=== PATIENT | male | born 1935 | race Caucasian/White ===

== ENCOUNTER 2023-08-11 14:18 | Outpatient (AMB) | payer MEDICARE, SELFPAY ==
[2023-08-11 14:27] VITALS: BP 110/60; PULSE 70; O2SAT 94; BMI 28.5
--- NOTE | 2023-08-11 14:27 | HO.NEPHOV_ITS ---
Vital Signs 08/11/23 14:27 Height 6 ft 1 in Weight 216 lb 4 oz BMI 28.5 BP 110/60 Blood Pressure Location Rt brachial Position Sitting Pulse 70 Pulse Source Pulse Oximeter Pulse Oximetry (%) 94 Oxygen Delivery Method Room Air Intake Visit Reasons: CKD/ Confirmed Hairspring Cutter Required: No Accompanied by: Significant Other Allergies Penicillins [PENICILLINS] Allergy (Severe, Verified 08/11/23 14:30) ANAPHYLAXIS penicillin V Allergy (Unknown, Verified 08/11/23 14:30) anaphylactic HPI Comments Details: I had the pleasure of seeing Ramon in follow-up of his history of hematuria. He is currently feeling well. He does not have any pedal edema, microscopic hematuria, orthostatic symptoms, chest pain, shortness of breath, paroxysmal nocturnal dyspnea. He follows up with the urologist as well. He has not had any medication changes. His blood pressure has been at goal. He maintains good hydration. [facility] Medical History (Updated 08/11/23 @ 21:42 by Kev Blackwell MD) Scanlon's neuroma History of renal stone History of prostate cancer Hematuria Surgical History (Updated 08/11/23 @ 14:33 by Mariya Gan MA) History of intraocular lens implant H/O Achilles tendon repair S/P rotator cuff repair Social History (Updated 08/11/23 @ 14:30 by Mariya Gan MA) Alcohol intake: never Patient Tobacco Use Status: Never used Tobacco Physical Exam Vital Signs: Last Vital Signs Pulse 70 08/11/23 14:27 BP 110/60 08/11/23 14:27 Pulse Ox 94 08/11/23 14:27 Oxygen Delivery Method Room Air 08/11/23 14:27 BMI result Body Mass Index 28.5 Const General: comfortable and no acute distress Orientation/consciousness: patient oriented x3 HEENT Head: Yes normocephalic Mouth: Normal oral and palatal mucosa present Eyes EOM: EOMs intact bilaterally Neck Neck: Yes supple Resp Auscultation: clear to auscultation bilaterally Cardio Jugular venous distension: no JVD Rate: regular rate GI Palpation (GI): Soft to palpation Auscultation: normal bowel sounds General: Yes no CVA tenderness Back/Spine/Pelvis Back: no CVA tenderness Skin General skin exam: no rashes or lesions noted Neuro General: patient oriented x3 and moves all extremities Extrem General: Yes no pedal edema Results Reviewed Nephrology Results: No Data to Display Assessment & Plan Assessment & Plan (1) Hematuria: Code(s): R31.9 - Hematuria, unspecified Category: Medical Qualifiers: Hematuria type: benign essential microscopic Qualified Code(s): R31.1 - Benign essential microscopic hematuria (2) History of renal stone: Code(s): Z87.442 - Personal history of urinary calculi Category: Medical Plan Ramon has history of prostate cancer 25 years ago. He also has history of renal stones which he has not had for a long time. His last CT abdomen showed bladder wall thickening. He follows up with urologist. He has no systemic symptoms or any hematuria. His renal functions have been stable. His blood p ressure is at goal. He avoids nonsteroidal anti-inflammatories. He maintains good hydration. I had not make any medication changes today. All his questions were answered. Coding Level of Care Code Est Pt Level 4 (14220) Diagnoses Benign essential microscopic hematuria 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
== END 2023-08-11 15:14 | disposition home or self-care (01) ==
PROVIDERS: PCP Hospitalist; Visit Provider Internal Medicine Nephrology
DX: R31.1 Benign essential microscopic hematuria (principal); Z87.442 Personal history of urinary calculi
CPT/HCPCS: 99214

== ENCOUNTER → 2023-08-11 14:18 | Outpatient (BNVA) | payer MEDICARE, SELFPAY | PROVIDERS: PCP Hospitalist; Visit Provider Internal Medicine Nephrology | DX: R31.1 Benign essential microscopic hematuria (principal); Z87.442 Personal history of urinary calculi | CPT/HCPCS: 99212 ==

== ENCOUNTER 2024-10-13 10:58 | Outpatient (AMB) | payer MEDICARE, SELFPAY ==
--- OUTSIDE RECORDS SUMMARY | 2024-04-10 04:30 | XMS_ITS ---
Author Organization [facility] Address [address] [place] [address] Care Team Providers Care Form Presser Name Role Phone Jes Mccray Primary Care Provider Unavailab Kaylah Galarza Unavailable [phone] Joanie Garcia [phone] REASON FOR VISIT sooner appt Encounters Encounter Location Date Provider Diagnosis [facility] [address] [place] [address] 04/10/2024 Joanie Garcia Plan Of Treatment No Information Progress Notes * Ramon PAYANDOB:1935 (89 yo M)Acc No.[id number]:04/10/2024 Progress Notes Patient: Ramon RAY Provider: Dede Garcia DPM :1935 A ge:89 Y S ex:Male Date:04/10/2024 Address:[address] [place] [address] dl [id number] Pcp:Jes Mccray Subjective: * Chief Complaints: * 1 . Sooner appt. * Medical History: Objective: * Vitals: Assessment: Plan: * Treatment: * Images: * The named appointment provid er may or may not be the originator of this progress note, and it is not deemed complete until electronically signed by the appointment provider. Sign off status: Pending * Provider: Dede Garcia DPM Date: 0 04/10/2024 Generated for Suzanna bronson/Laura/Ferchoitting on: 0 10/13/2024 11:35 AM EDT
--- OUTSIDE RECORDS SUMMARY | 2024-09-18 03:47 | XMS_ITS ---
Author Name [facility] [facility] [place] Address [address] [place] [address] Care Team Providers Care Humanities Department Chair Name Role Phone KAM CLANCY Primary Care Provider Unavaila [facility] Insurance Providers: All historical and current Section Date Range: From patient's date of to the date document was created. This section includes the names of all active insurance providers for the patient. Insurance Provider Type of Coverage Plan Name Start of Policy Coverage End of Policy Coverage Group Number Member ID Insurance Provider's Telephone Number Policy Calles's Name Patient's Relationship to Policy Calles [employer] MEDICARE SUPPLEMEN [place] Mar 29, 2006 [facility] [id number] SCUHYLER,L O[place]IS PATIENT AARP MED [facility] MEDICARE SUPPLEMEN [place] Mar 29, 2006 [facility] [id number] SCHUYLER,L [place] PATIENT MEDICARE (WNR) MEDICARE (M) PART A Mar 29, 2002 PART A [id number] SCHUYLER,L [place] PATIENT MEDICARE (WNR) MEDICARE (M) PART B Mar 29, 2002 PART B [id number] SCHUYLER,L [place] PATIENT Selected Encounter This section includes the information on record at [place] for the Encounter. Date/Time Encounter Type Encounter Description Reason Provider Source Sep 18, 2024 07:47 AM [facility] OL DIG ASSMT&MGMT 5-10 CLINICAL PHARMACY ICD-10-CM Z04.89 Encounter for examination and observation for oth reasons OZZY BOATENG [facility] Encounter Template Text not used by [place] Assessments - Encounter Diagnoses This section includes the primary and secondary diagnoses documented for the Encounter. Date/Time Primary/Secondary Diagnosis Diagnosis Name Provider Source Sep 18, 2024 07:57 AM PRIMARY Encounter for examination and observation for oth reasons OZZY BOATENG [facility] Plan of Treatment: Future Appointments (+ 6 months) and Future Tests (+/- 45 days) The Plan of Treatment section includes future care activities for the patient [facility] [place] [facility] This section includes future appointments and future orders which are active, pending or scheduled. Future Appointments This section includes appointments that were scheduled to occur 6 months from the date of the Encounter, up to a maximum of 20 appointments. The data comes from all [place] treatment facilities. Appointment Date/Time Appointment Type Appointme nt Facility Name Nov 23, 2024 09:30 AM AMBULATORY - MEDICINE [facility] Social History: Smoking Status (Most current) and Tobacco Use (All prior to encounter date) This section includes the most current, and the historical, smoking and tobacco- related health factors from the [place] facility where the Encounter took place. Current Smoking Status This section includes the most current smoking, or tobacco-related health factor, from the [place] facility where the Encounter took place. Date/Time Current Smoking Status Comment Facil ity Nov 22, 2023 02:00 PM [facility] Tobacco Use History This section includes a history of the smoking, or tobacco-related health factors, that were collected on or before the date of the Encounter. The data comes from the [place] facility where the Encounter took place. Date/Time Smoking Status/Tobacco Use Comment F acility Nov 22, 2023 02:00 PM CO[facility] QUIT [facility] YRS [facility] Nov 23, 2022 10:00 AM [facility] [place] [facility] Nov 23, 2022 10:00 AM CO-TOBACCO QUIT 15 YRS OR MORE [facility] Dec 25, 2020 09:00 AM [facility] [place] [facility] Dec 25, 2020 09:00 AM VA-TOBACCO QUIT 15 YRS OR MORE [facility] [place] [facility] Dec 26, 2019 10:30 AM VA-TOBACCO FORMER USER [facility] [place] [facility] Dec 26, 2019 10:30 AM VA-TOBACCO QUIT 15 YRS OR MORE [facility] [place] [facility] Dec 09, 2018 09:59 AM VA-TOBACCO FORMER USER [facility] [place] [facility] Dec 09, 2018 09:59 AM VA-TOBACCO QUIT 15 YRS OR MORE [facility] Encounter Notes: All associated encounter notes This section contains the clinical notes associated to the Encounter. Date/Time Encounter Note(s) Provider Source Sep 18, 2024 07:47 AM PHARMACY MEDICATION MGT NOTE: LOCAL TITLE: PHARMACY ANTICOAGULATION NOTE STANDARD TITLE: PHARMACY MEDICATION MGT NOTE DATE OF NOTE: SEP 18, 2024@07:47 ENTRY DATE: SEP 18, 2024@07:47:39 AUTHOR: JUSTIN MONCADA EXP COSIGNER: URGENCY: STATUS: COMPLETED PHARMACY ANTICOAGULATION NOTE Has ADDENDA ANTICOAGULATION DOAC MONITORING NOTE SUBJECTIVE: Patient identified through the DOAC population Management Tool based on the following criteria: [ ] Dosing Issue [ ] Critical Drug Interaction [ ] Cancer Treatment [ ] Active NSAID [ ] Labs Overdue [ ] Prosthetic Valve Replacement [ ] Notable Lab Value [ X ] Overdue for Refill [ ] Other: Comments: Pt flagged for being overdue for refill. Rx last filled apixaban x90 days 04/12/24 OBJECTIVE: Indication for anticoagulation: [ ] Atrial fibrilation [ ] Atrial flutter [ X ] VTE (DVT or PE) [ ] Post-op DVT prophylaxis [ ] Other: Most recent lab values include the following: HGB: HGB Collection DT Specimen Test Name Result Units Ref Range 03/31/2024 11:37 BLOOD HGB 14.1 g/dL 12.8 - 17 PLT: WBC Collection DT Specimen Test Name Result Units Ref Range 03/31/2024 11:37 BLOOD WBC 9.11 K/cmm 4.50 - 11.00 Liver Function Tests Collection DT Spec AST ALT ALK FRANNY ALBUMIN T BILI T. PROT 03/31/2024 11:37 SERUM 22 17 93 3.8 0.4 6.8 HEIGHT: 72 in [182.9 cm] (11/22/2023 13:50) WEIGHT: 212 lb [96.16 kg] (11/22/2023 13:50) BMI: BMI: 28.8 CREATININE-EGFR 03/31/24 11:37 1.18 CRCL IBW: CrCl(est): 48.4 mL/min (Creat:1.18 03/31/24) CRCL ACT: No Creat CRCL ADJ: 48.4 mL/min (03/31/24) ASSESSMENT: refill overdue Action required? [ X ] Yes [ ] No Comments: last filled apixaban 04/12/24 and per 04/04/24 consult Expected Duration: 6 months. Will alert PCP and ask that apixaban be discontinued if is no longer taking or PLAN: [ ] No action required, dismiss flag [ X ] Will intervene: [ ] Patient education via phone/letter [ ] Schedule phone/aipk-yf-ilbi follow up [ ] Lab ordered [ ] Discontinue interacting medication [ ] Discontinue DOAC [ ] Change to alternative DOAC [ ] Change DOAC dose [ X ] Notify PCP [ ] Consult cardiology/hematology [ ] Other: Time spent: 5 min /pauline/ UJSTIN MONCADA CPHT Clinical Tank Car Repairer Signed: 09/18/2024 07:51 Receipt Acknowledged By: 09/18/2024 07:57 /pauline/ Neema Boateng PharmD, JULIAN Clinical Pet Counselor 09/18/2024 08:13 /pauline/ Kam Clancy DNP, [employer]-, CNL Primary Care Nurse Practitioner 09/18/2024 ADDENDUM STATUS: COMPLETED Above case reviewed as entered by [facility] Physician Neonatology. Agree with current assessment and plan of care for this patient's anticoagulation management as noted. Deferring Rx d/c to PCP. /pauline/ Neema Boateng PharmD, [facility] Clinical Pet Counselor Signed: 09/18/2024 07:57 JUSTIN MONCADA [facility]
[2024-10-13 11:17] VITALS: BP 124/60; PULSE 73; O2SAT 96; BMI 29.1
--- NOTE | 2024-10-13 11:17 | HO.NEPHOV_ITS ---
Vital Signs 10/13/24 11:17 Height 6 ft 1 in Weight 220 lb 6 oz BMI 29.1 BP 124/60 Blood Pressure Location Rt brachial Position Sitting Pulse 73 Pulse Source Pulse Oximeter Pulse Oximetry (%) 96 Oxygen Delivery Method Room Air Intake Visit Reasons: CKD/ 1 Year FU-Conf Barrel Lapper Required: No Accompanied by: Spouse Allergies Penicillins (PENICILLINS) Allergy (Severe, Verified 10/13/24 11:19) ANAPHYLAXIS penicillin V Allergy (Unknown, Verified 10/13/24 11:19) anaphylactic HPI Comments Details: I had the pleasure of seeing Ramon in follow-up of his history of hematuria. He is currently feeling well. He does not have any pedal edema, microscopic hematuria, orthostatic symptoms, chest pain, shortness of breath, paroxysmal nocturnal dyspnea. He follows up with the urologist as well. He has not had any medication changes. His blood pressure has been at goal. He maintains good hydration. [facility] Medical History (Updated 08/11/23 @ 21:42 by Kev Blackwell MD) Capo's neuroma History of renal stone History of prostate cancer Hematuria Surgical History (Updated 08/11/23 @ 14:33 by Mariya Gan MA) History of intraocular lens implant H/O Achilles tendon repair S/P rotator cuff repair Social History (Updated 08/11/23 @ 14:30 by Mariya Gan MA) Alcohol intake: never Patient Tobacco Use Status: Never used Tobacco Review of Systems Const All systems reviewed & are unremarkable except as noted in HPI and below Physical Exam Vital Signs: Last Vital Signs Pulse 73 10/13/24 11:17 BP 124/60 10/13/24 11:17 Pulse Ox 96 10/13/24 11:17 Oxygen Delivery Method Room Air 10/13/24 11:17 BMI result Body Mass Index 29.1 Const General: comfortable and no acute distress Orientation/consciousness: patient oriented x3 HEENT Head: Yes normocephalic Mouth: Normal oral and palatal mucosa present Eyes EOM: EOMs intact bilaterally Neck Neck: Yes supple Resp Auscultation: clear to auscultation bilaterally Cardio Jugular venous distension: no JVD Rate: regular rate GI Palpation (GI): Soft to palpation Auscultation: normal bowel sounds General: Yes no CVA tenderness Back/Spine/Pelvis Back: no CVA tenderness Skin General skin exam: no rashes or lesions noted Neuro General: patient oriented x3 and moves all extremities Extrem General: Yes no pedal edema Assessment & Plan Assessment & Plan (1) Hematuria: Code(s): R31.9 - Hematuria, unspecified Category: Medical Qualifiers: Hematuria type: benign essential microscopic Qualified Code(s): R31.1 - Benign essential microscopic hematuria (2) History of renal stone: Code(s): Z87.442 - Personal history of urinary calculi Category: Medical Plan Ramon has history of prostate cancer 25 years ago. He also has history of renal stones which he has not had for a long time. His last CT abdomen showed bladder wall thickening. He follows up with urologist. He has no systemic symptoms or any hematuria. His renal functions have been stable. His blood pressure is at goal. He avoids nonsteroidal anti-inflammatories. He maintains good hydration. I had not make any medication changes today. All his questions were answered. Orders: Orders Blood Urea Nitrogen 1 Year R31.1 - Benign essential microscopic hematuria, Z87.442 - Personal history of urinary calculi Electrolytes 1 Year R31.1 - Benign essential microscopic hematuria, Z87.442 - Personal history of urinary calculi Creatinine 1 Year R31.1 - Benign essential microscopic hematuria, Z87.442 - Personal history of urinary calculi Calcium 1 Year R31.1 - Benign essential microscopic hematuria, Z87.442 - Personal history of urinary calculi UA and rflx microscopic 1 Year R31.1 - Benign essential microscopic hematuria, Z87.442 - Personal history of urinary calculi Protein Creatinine Ratio, Ur 1 Year R31.1 - Benign essential microscopic hematuria, Z87.442 - Personal history of urinary calculi Coding Level of Care Code Est Pt Level 4 (47959) Diagnoses Benign essential microscopic hematuria 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
--- OUTSIDE RECORDS SUMMARY | 2024-10-13 11:35 | XMS_ITS | Clinical Summary ---
Author Organization [address] [facility] Address [address] [place] [address] Phone Care Team Providers Care Tank Farm Gauger Name Role Phone Farhana Mccrayfer MARLINE Primary Care Provider [phone] Encounters Date Type Department Care Team Description 10/06/2024 Lab Requisition [facility] Main Lab [address] [place] [address] Paulino Stewart PA Gross hematuria 09/28/[address] [facility] Lab [address] [place] [address] Paulino Stewart PA Urinary tract infection, site not specified from Last 3 Months Social History Tobacco Use Types Packs/Day Years Used Date Smoking Tobacco: Former Cigarettes Q uit: 03/29/1971 Smokeless Tobacco: Never Alcohol Use Standard Drinks/Week Comments Yes 1 (1 standard drink = 0.6 oz pur e alcohol) Sex and Gender Information Value Date Recorded Sex Assigned at Not on file Legal Sex Male 11:06 AM EDT Gender Identity Not on file Sexual Orientation Not on file Obstetrics History Last Filed Vital Signs Vital Sign Reading Time Taken Comments Blood Pressure - - Pulse - - Temperature - - Respiratory Rate - - Oxygen Saturation - - Inhaled Oxygen Concentration - - Weight 99 kg (218 lb 3.2 oz) 07/27/2023 1:00 PM EDT Height 185.4 cm (6' 1 ) 07/27/2023 1:00 PM EDT Body Mass Index 28.79 07/27/2023 1:00 PM EDT Plan of Treatment Health Maintenance Due Date Last Done Comments Zoster Vaccines (1 of 2) 1987 RSV Immunization Adult Patients (1 - 1-dose 75+ series) 2012 Cholesterol Screening (Lipid Panel) 10/22/2023 Depression Screening 10/22/2023 Falls Risk Assessment 10/22/2023 Medicare Annual Wellness Visit 10/22/2023 Social Influencers of Health Screening 10/22/2023 COVID-19 Vaccine (1 - 2023-2 5 season) 2023 Influenza Vaccine (#1) 2024 , 12/27/2018 DTaP,Tdap,and Td Vaccines (4 - Td or Tdap) 01/10/2029 01/10/2019, 07/27/2018, 08/30/2017 Pneumococcal Vaccine: 50+ Years Completed 01/10/2019, 08/30/2017, 03/25/2017 HIB Vaccines Aged Out No longer eligi ble based on patient's age to complete this topic HPV Vaccines Aged Out No longer eligi ble based on patient's age to complete this topic Hepatitis A Vaccines Aged Out No long er eligible based on patient's age to complete this topic Hepatitis B Vaccines Aged Out No long er eligible based on patient's age to complete this topic IPV Vaccines Aged Out No longer eligi ble based on patient's age to complete this topic MMR Vaccines Aged Out No longer eligi ble based on patient's age to complete this topic Meningococcal ACWY Vaccine Aged Out N o longer eligible based on patient's age to complete this topic Meningococcal B Vaccine Aged Out No l onger eligible based on patient's age to complete this topic RSV Immunization Patients Under 20 months Aged Out No longer eligible b ased on patient's age to complete this topic Varicella Vaccines Aged Out No longer eligible based on patient's age to complete this topic Procedures Procedure Name Priority Date/Time Associated Diagnosis Comments CULTURE URINE Routine 09/28/2024 12:00 AM EDT Urinary tract infection, site not specified from Last 3 Months Results * (ABNORMAL) Culture urine (09/28/2024 12:00 AM EDT) Culture, Urine >100,000 CFU/mL Escherichia coli(A) SONYA 09/30/2024 11:53 AM EDT [facility] Urine Urine specimen obtained by clean catch procedure / Unknown 09/28/2024 09/28/2024 7:08 PM EDT Narrative Organism Antibiotic Method Susceptibility Escherichia coli Amoxicillin/Clavulanate SONYA <=2 ug/ml: Susceptible Escherichia coli Ampicillin/Sulbactam SONYA <=2 ug/ml: Susceptible Escherichia coli Piperacillin/Tazobactam SONYA <=4 ug/ml: Susceptible Escherichia coli Cefazolin (Urine) SONYA 2 ug/ml: Susceptible Escherichia coli Cefoxitin SONYA <=4 ug/ml: Susceptible Escherichia coli Ceftazidime SONYA <=0.5 ug/ml: Susceptible Escherichia coli Ceftriaxone SONYA <=0.25 ug/ml: Susceptible Escherichia coli Cefepime SONYA <=0.12 ug/ml: Susceptible Escherichia coli Meropenem SONYA <=0.25 ug/ml: Susceptible Escherichia coli Amikacin SONYA 2 ug/ml: Susceptible Escherichia coli Gentamicin SONYA <=1 ug/ml: Susceptible Escherichia coli Ciprofloxacin SONYA <=0.06 ug/ml: Susceptible Escherichia coli Levofloxacin SONYA <=0.12 ug/ml: Susceptible Escherichia coli Nitrofurantoin SONYA <=16 ug/ml: Susceptible Escherichia coli Trimethoprim/Sulfamethoxazole SONYA <=20 ug/ml: Susceptible [facility] MICROBIOLOGY - GENERAL ORDE JEAN Final Result [facility] ([facility] [address] [place] [address], from Last [address] [facility] Care Teams Tank Farm Gauger Relationship Specialty Start Date End Date Jes Mccray NP [address] [place] [address] PCP - General 06/25/23
--- OUTSIDE RECORDS SUMMARY | 2024-10-13 11:35 | XMS_ITS | Patient Health Record ---
Author Organization [facility] Address [address] [place] [address] Care Team Providers Care Blooming Mill Supervisor Name Role Phone Manish (RETIRED) Kam SALTER Primary Care Provider Unavailable Jimenez Oglesby Unavailable [phone] Allergies Allergen (clinical drug ingredient) Drug/Non Drug Allergy documented on EMR Reaction Allergy Type Onset Date Status Penicillin Unknown Drug Allergy Active Reason For Referral No Information Medications Medication SIG (Take, Route, Frequency, Duration) Notes Start Date End Date Status Colyte with Flavor Packs 240 GM As directed Orally Once a day for 1 dose 10/23/2011 Active Multi Vitamin/Minerals Active Oxaprozin 600mg Acti ve Simvastatin 20mg Act deepali Terazosin HCl 2mg Ac tive Omeprazole 20mg 03/29/2024 03/29/2024 Ac tive Vitamin B 12 Active Problems Problem Type SNOMED Code ICD Code Onset Dates Problem Status W/U Status Risk Notes Problem Reflux esophagitis (438159006) Reflux esophagitis (530.11) Active confirmed Problem Esophageal reflux (913026711) Esophageal reflux (530.81) Active confirmed Problem 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 Problem History of adenomatous polyp of colon (285323406) History of adenomatous polyp of colon (V12.72) Active confirmed Problem Wisdom esophagus (670909163) 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 Problem Colorectal cancer screening service (qualifier value) (8490469449) Encounter for colorectal cancer screening (V76.51) Active confirmed Plan Of Treatment Future Test Test Name Order Date COLONOSCOPY 10/16/2011 Insurance Providers Payer Name Payer Address Payer Phone Subscriber Number Group Number Insured Name Patient Relationship to Insured Coverage Start Date Coverage End Date MEDICARE OF [place] [address] [place] [id number] HANG PAYAN Self - patient is the insured [facility] SUPP[employer] [facility] [address] [place] [address] [phone] [id number] HANG PAYAN Self - patient is the insured Medical (General) History Medical History History ICD Code GERD with Wisdom's esophagus, and histo ry of low grade dysplasia hyperlipidemia prostate cancer treated with radiation colon polyps-tubular adenoma removed in 2006 gastric ulcer Denies NE,DM,CVA,Lung disease,renal dise ase Surgical History Surgery Date(Month/Year) bilateral pneumothoraces in his 20s
--- OUTSIDE RECORDS SUMMARY | 2024-10-13 11:35 | XMS_ITS | Clinical Summary ---
Author Organization [facility] Address [address] [place] [address] Phone Care Team Providers Care Graphics Manager Name Role Phone Unavailable Primary Care Provider Unavailabl e Allergies Active Allergy Reactions Criticality Noted Date Comments Penicillins Anaphylaxis High 04/23/2021 Medications Multiple Vitamin (MULTIVITAMIN ADULT PO) Take 1 tablet by mouth 1 (one) time each day Active ascorbic acid (VITAMIN C) 500 MG tablet Take 1 tablet by mouth every other day Active aspirin (ST KOBY) 81 MG EC tablet Take 1 tablet by mouth every other day Active cyanocobalamin (VITAMIN B-12) 1000 MCG tablet Take 1 tablet by mouth 1 (one) time each day Active niacin 100 MG tablet Take 100 mg by mouth 1 (one) time each day with breakfast Active apixaban (ELIQUIS) 5 MG tablet Take 5 mg by mouth in the morning and 5 mg in the evening. 4 Active omeprazole (PriLOSEC) [address] capsule Take 40 mg by mouth 1 (one) time each day Active Active Problems Problem Noted Date Diagnosed Date Chronic kidney disease, stage 2 (mild) 5 Anemia, not otherwise specified 05/04/2024 Hypocalcemia 05/04/2024 Disorder of rotator cuff 04/24/2021 Gastroesophageal reflux disease 04/24/2021 H/O: peptic ulcer 04/24/2021 H/O: pneumothorax 04/24/2021 Malignant melanoma 04/24/2021 Nodular thyroid disease 04/24/2021 Overview (04/24/2021): f/u US June 2018,2020 and 2022 Vertigo 04/24/2021 Blood in urine 04/23/2021 Large prostate 04/11/2021 Malignant neoplasm of prostate 04/11/2021 Malignant adenomatous neoplasm 06/26/2019 Immunizations Immunization Administration Dates Next Due Influenza Whole 01/07/2020,12/27/2018 Pneumococcal Conjugate 13-Valent 01/10/2019,02/27 Pneumococcal Polysaccharide 08/30/2017 Tdap 01/10/2019,07/27/2018,08/30/2017 Family History Medical History Relation Comments Heart disease Father Relation Status Comments Father Mother Social History Tobacco Use Types Packs/Day Years Used Date Smoking Tobacco: Former Smokeless Tobacco: Never Tobacco Cessation:Counseling Given: Not Answered Alcohol Use Standard Drinks/Week Comments Yes 0 (1 standard drink = 0.6 oz pure alcohol) Alcoholic Drinks/day: Occasional social drink Sex and Gender Information Value Date Recorded Sex Assigned at Not on file Legal Sex Male 4:53 PM EST Gender Identity Not on file Sexual Orientation Not on file Last Filed Vital Signs Vital Sign Reading Time Taken Comments Blood Pressure 122/60 05/04/2024 9:10 AM EST Pulse 64 05/04/2024 9:10 AM EST Temperature - - Respiratory Rate - - Oxygen Saturation 98% 05/04/2024 9:10 AM EST Inhaled Oxygen Concentration - - Weight 99.4 kg (219 lb 3.2 oz) 05/04/2024 9:10 A M EST Height 185.4 cm (6' 1 ) 04/08/2020 12:00 PM EST Body Mass Index 28.92 04/08/2020 12:00 PM EST Plan of Treatment Health Maintenance Due Date Last Done Comments Influenza Vaccine (#1) 2024 , 01/07/2020, 12/05/2019, Additional history exists Pneumococcal Vaccine: 50+ Years Completed 01/10/2019, 08/30/2017, 03/25/2017 Pneumococcal Vaccine: Peds (0 to 5 Years) and At-Risk Patients (6 to 49 Years) Discontinued 01/10/2019, 08/30/2017, 03/25/2017 Hepatitis B Vaccine Aged Out No longe r eligible based on patient's age to complete this topic Insurance Medicare [facility] Medicare [facility]
== END 2024-10-13 11:49 | disposition home or self-care (01) ==
LOC: HO.HKA 11:00
PROVIDERS: Visit Provider Internal Medicine Nephrology
DX: R31.1 Benign essential microscopic hematuria (principal); Z87.442 Personal history of urinary calculi
CPT/HCPCS: 99214

== ENCOUNTER → 2024-10-13 10:58 | Outpatient (BNVA) | payer MEDICARE, SELFPAY | PROVIDERS: Visit Provider Internal Medicine Nephrology | DX: R31.1 Benign essential microscopic hematuria (principal); Z87.442 Personal history of urinary calculi | CPT/HCPCS: 99212 ==